=== PATIENT | male | born 1940 | race Caucasian/White ===

== ENCOUNTER 2018-01-28 16:12 | Outpatient (CLI) | payer MEDICARE | END 2018-01-28 16:13 | disposition home or self-care (01) | LOC: BICRAD 16:12 | PROVIDERS: ATTEND Internal Medicine | DX: M25.551 Pain in right hip (principal); M16.11 Unilateral primary osteoarthritis, right hip ==

== ENCOUNTER 2018-09-13 12:35 | Outpatient (CLI) | payer MEDICARE ==
--- NOTE | 2018-09-13 15:17 | CT ---
CT HEAD NONCONTRAST: INDICATIONS: History of prior surgery. COMPARISON: 08/29/2018 FINDINGS: There is redemonstration of extraaxial, mildly hyperdense relative to normal CSF density, extraaxial collection overlying the right convexity, with thickness measuring 13-14 mm, grossly stable. There h as been interval resolution of prior small-volume extraaxial left collection, when referencing prior exam. No new midline shift. Right frontal approach ventriculostomy remains with the tip at the left frontal horn. A similar degree of white matter hypoattenuation is seen bilaterally. No acute intra cranial hemorrhage. The calvarium is intact. 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 IMPRESSION: Grossly stable volume chronic appearing subdural hematoma overlying the prior convexity, with interva l resolution of prior small volume left-sided extraaxial collection. Exam is otherwise stable. POS: [facility]
== END 2018-09-13 12:36 | disposition home or self-care (01) ==
LOC: TBSIIMAG 12:35
PROVIDERS: ATTEND Surgery
DX: G91.9 Hydrocephalus, unspecified (principal); I62.00 Nontraumatic subdural hemorrhage, unspecified
CPT/HCPCS: 70450